=== PATIENT | female | born 1945 | race Caucasian/White ===

== ENCOUNTER → 2017-01-09 | Outpatient (CLI) | payer MEDICARE ==
[~2017-01-09] MED LIST: ASCO500T8 PO; CALC-141 PO; CHOL2000 PO; DEXA4TAB PO; METO10TA2 PO; None at this time; ONDA4TAB7 PO; OXYC1TAB7 PO; SENN8.6T98 PO
== END | disposition home or self-care (01) ==
LOC: CFH 13:06
PROVIDERS: ATTEND Specialist
DX: Z12.31 Encounter for screening mammogram for malignant neoplasm of breast (principal)
CPT/HCPCS: G0202

== ENCOUNTER → 2018-02-28 | Outpatient (CLI) | payer MEDICARE ==
[~2018-02-28] MED LIST changes: +OMNIPAQUE 350 MG/ML, 100ML BOTTLE ONE
== END | disposition home or self-care (01) ==
LOC: RAD 09:10
PROVIDERS: ATTEND Specialist
DX: C56.1 Malignant neoplasm of right ovary (principal); R59.1 Generalized enlarged lymph nodes; C76.3 Malignant neoplasm of pelvis; R18.0 Malignant ascites
CPT/HCPCS: 71260; 74177; Q9967

== ENCOUNTER → 2018-07-30 | Outpatient (CLI) | payer MEDICARE | END | disposition home or self-care (01) | LOC: CFH 09:01 | PROVIDERS: ATTEND Specialist | DX: Z51.11 Encounter for antineoplastic chemotherapy (principal); J43.9 Emphysema, unspecified; C56.1 Malignant neoplasm of right ovary; C78.7 Secondary malignant neoplasm of liver and intrahepatic bile duct; C79.89 Secondary malignant neoplasm of other specified sites | CPT/HCPCS: 71260; 74177; Q9967 ==

== ENCOUNTER 2019-05-19 07:02 | Day surgery (SDC) | payer MEDICARE ==
[~2019-05-19] VITALS: Ht 160 cm; Wt 56.6 kg
[~2019-05-19 07:02] MED LIST changes: -OMNIPAQUE 350 MG/ML, 100ML BOTTLE ONE
[2019-05-19 07:29] VITALS: BP 117/72
[2019-05-19] MEDS ORDERED: LACTATED RINGERS 1,000 ML IV SCH (07:32)
[2019-05-19] MEDS ORDERED: MIDAZOLAM 1 MG/ML, 2ML ONE (09:43)
[2019-05-19] MEDS ORDERED: FENTANYL PF 100 MCG/2ML ONE (09:43)
[2019-05-19] MEDS ORDERED: BUPIVACAINE/PF 0.25% ONE (10:25)
[2019-05-19] MEDS ORDERED: HEPARIN 1,000 UNITS/ML, 10ML ONE (10:25)
[2019-05-19] MEDS ORDERED: KETAMINE 10 MG/ML, 20ML ONE (10:44)
[2019-05-19] MEDS ORDERED: PHENYLEPHRINE 10 MG/ML ONE (10:44)
[2019-05-19] MEDS ORDERED: DEXAMETHASONE 4 MG/ML, 1ML ONE (11:28)
[2019-05-19] MEDS ORDERED: KETOROLAC 30 MG/1 ML ONE (11:28)
[2019-05-19] MEDS ORDERED: CEFAZOLIN 1,000 MG ONE (11:28)
[2019-05-19] MEDS ORDERED: LIDOCAINE-MPF 2% ,5ML ONE (11:28)
[2019-05-19] MEDS ORDERED: WATER-INJECTION,STERILE 10 ML IV ONE (11:28)
[2019-05-19] MEDS ORDERED: ONDANSETRON 2MG/ML, 2ML ONE (11:28)
[2019-05-19] MEDS ORDERED: PROPOFOL 10 MG/ML, 20ML ONE (11:28)
[2019-05-19] MEDS ORDERED: ACETAMINOPHEN 325 MG TABLET PO PRN (11:30)
[2019-05-19] MEDS ORDERED: PROMETHAZINE 25 MG/ML, 1ML IV PRN (11:30)
[2019-05-19] MEDS ORDERED: ALBUTEROL/IPRATROPIUM 2.5MG/0.5MG, 3 ML NPPB PRN (11:30)
[2019-05-19] MEDS ORDERED: hydrALAzine 20 MG/ML, 1ML IV PRN (11:30)
[2019-05-19] MEDS ORDERED: OXYcodone 5 MG/5 ML ORAL.SOL UDC PO PRN (11:30)
[2019-05-19] MEDS ORDERED: MEPERIDINE/PF 25MG/ML,1ML IVPush PRN (11:30)
[2019-05-19] MEDS ORDERED: FENTANYL PF 100 MCG/2ML IV PRN (11:30)
[2019-05-19] MEDS ORDERED: HYDROmorphone 2 MG/ML, 1ML IVPush PRN (11:30)
[2019-05-19] MEDS ORDERED: MEPERIDINE/PF 25MG/ML,1ML ONE (11:56)
[2019-05-19] MEDS ORDERED: ACETAMINOPHEN 650 MG/20.3 ML UDC ONE (12:11)
== END 2019-05-19 14:55 | disposition home or self-care (01) ==
LOC: OUT 07:02
PROVIDERS: ATTEND Specialist
DX: C56.9 Malignant neoplasm of unspecified ovary
CPT/HCPCS: 36561; 71045; 77001; 93005; C1788; J0690; J1100; J1644; J1885; J2175; J2250; J2370; J2405; J2704; J3010; J3490

== ENCOUNTER → 2019-05-26 | Outpatient (CLI) | payer MEDICARE | END | disposition home or self-care (01) | LOC: RAD 09:10 | PROVIDERS: ATTEND Nurse Practitioner Acute Care | DX: Z51.11 Encounter for antineoplastic chemotherapy (principal); C56.1 Malignant neoplasm of right ovary; C56.2 Malignant neoplasm of left ovary | CPT/HCPCS: 78472; A9560 ==

== ENCOUNTER 2019-09-22 13:02 | Outpatient (CLI) | payer MEDICARE ==
[2019-09-22] MEDS ORDERED: OMNIPAQUE 350 MG/ML, 100ML BOTTLE ONE (14:02)
== END 2019-09-22 23:59 | disposition home or self-care (01) ==
LOC: CFH 13:02 → EDSTATUS 14:30 → CFH 23:59
PROVIDERS: ATTEND Nurse Practitioner Acute Care
DX: Z51.11 Encounter for antineoplastic chemotherapy (principal); C78.6 Secondary malignant neoplasm of retroperitoneum and peritoneum; C78.80 Secondary malignant neoplasm of unspecified digestive organ; C56.1 Malignant neoplasm of right ovary; C56.2 Malignant neoplasm of left ovary; R91.1 Solitary pulmonary nodule; E04.2 Nontoxic multinodular goiter; K43.9 Ventral hernia without obstruction or gangrene; R59.0 Localized enlarged lymph nodes
CPT/HCPCS: 71260; 74177; Q9967

== ENCOUNTER → 2020-06-07 | Outpatient (CLI) | payer MEDICARE ==
[~2020-06-07] MED LIST changes: +CARV6.2512 PO; +HYDR15SO3 PO; +LORA-445 PO; +Magic mouthwash PO; +POTA20TA14 PO; +TORS20TA2 PO
== END | disposition home or self-care (01) ==
LOC: CFH 10:55
PROVIDERS: ATTEND Registered Nurse
DX: I08.2 Rheumatic disorders of both aortic and tricuspid valves (principal); I42.9 Cardiomyopathy, unspecified
CPT/HCPCS: 93306